=== PATIENT | female | born 1940 | race Asian ===

== ENCOUNTER → 2017-04-03 | Outpatient (CLI) | payer OTHER, MEDICAID ==
[~2017-04-03] MED LIST: AMLO-511 PO
== END | disposition home or self-care (01) ==
LOC: RADPV 09:10
PROVIDERS: ATTEND Internal Medicine
DX: I08.0 Rheumatic disorders of both mitral and aortic valves (principal); I77.819 Aortic ectasia, unspecified site
CPT/HCPCS: 93306